=== PATIENT | male | born 1955 ===

== ENCOUNTER 2022-11-29 13:52 | Emergency (ER) | payer OTHER, MEDICAID ==
[~2022-11-29 13:52] MED LIST: Iopamidol-370 76% 500 ML 1 ML ONE
[2022-11-29] MEDS ORDERED: Boostrix 0.5 ML (Tdap) VIAL (>/=7 yrs of age) ONE (14:21)
[2022-11-29 15:01] LABS: #Basophils 0.1 thou/uL (0.0-0.2); #Eosinphils 0.2 thou/uL (0.0-0.7); #Lymphocytes 1.1 thou/uL (1.20-3.40); #Neutrophils 11.2 thou/uL (1.40-6.50); %Basophils 0.6 % (0.0-1.0); %Eosinophils 1.6 % (0.0-10.0); %Lymphocytes 8.1 % (21.0-51.0); %Monocytes 7.5 % (0.0-10.0); %Neutrophils 82.1 % (42.0-75.0); Hemoglobin 12.9 g/dL (14.0-18.0); Mean Corpuscular Hemoglobin 31.9 pg (27.0-31.0); Mean Corpuscular Volume 93.8 fl (78.0-98.0); Mean Platelet Volume 6.7 fL (7.4-10.4); Platelet Count 242 10x3/uL (130-400); RBC Distribution Width 12.5 % (11.5-14.5); Red Blood Cell (RBC) Count 4.05 mill/uL (4.70-6.10); White Blood Cell (WBC) Count 13.6 10x3/uL (4.8-10.8)
[2022-11-29 15:10] LABS: PTT 26.9 sec (22.9-36.1)
[2022-11-29 15:29] LABS: ALT (SGPT) 20 U/L (8-55); AST (SGOT) 24 U/L (5-34); Albumin 3.7 g/dL (3.4-4.8); Alcohol Less than 10 mg/dL (Less than 10); Alkaline Phosphatase 69 U/L (40-110); Anion Gap 13 mmol/L (10-20); BUN (Urea Nitrogen) 20 mg/dL (8.4-25.7); Bilirubin, Total 0.4 mg/dL (0.2-1.2); Calc. Creatinine Clearance 0 mL/min (70-130); Carbon Dioxide 23 mmol/L (23-31); Chloride 103 mmol/L (98-107); Estimated GFR 77; Globulin 2.8 g/dL (2.4-3.5); Glucose 139 mg/dL (80-115); Lipase 28 U/L (8-78); Potassium 3.6 mmol/L (3.5-5.1); Protein, Total 6.5 g/dL (5.8-8.1); Sodium 135 mmol/L (136-145)
[2022-11-29] MEDS ORDERED: Ondansetron PF 4 MG/2 ML Vial IVP PRN (16:04)
[2022-11-29] MEDS ORDERED: Ipratropium/Albuterol 3 ML NEB NEB PRN ×2 (16:04→16:10)
[2022-11-29] MEDS ORDERED: Cyclobenzaprine 10 MG TAB PO PRN (16:10)
[2022-11-29] MEDS ORDERED: hydrALAZINE 20 MG/ML VIAL SLOW IVP PRN (16:10)
[2022-11-29] MEDS ORDERED: traMADol HCl 50 MG TAB PO PRN (16:10)
[2022-11-29] MEDS ORDERED: Sodium Chloride 0.9% 1,000 ML IV SCH (16:15)
[2022-11-29] MEDS ORDERED: Ketorolac Tromethamine 30 MG/ML VIAL ONE (17:52)
[2022-11-29] MEDS ORDERED: traMADol HCl 50 MG TAB PO SCH (18:00)
[2022-11-29] MEDS ORDERED: Famotidine/PF 20 mg/2ml Vial SLOW IVP SCH (21:00)
[2022-11-29] MEDS ORDERED: Senokot S 8.6-50 MG TAB PO SCH (21:00)
[2022-11-29] MEDS ORDERED: Gabapentin 300 MG CAP PO SCH (21:00)
[2022-11-29] MEDS ORDERED: Acetaminophen 500 MG TAB PO SCH (23:59)
[2022-11-30] MEDS ORDERED: Multivitamin W/ Minerals 1 TAB PO SCH (09:00)
[2022-11-30] MEDS ORDERED: Polyethylene Glycol 3350 17 GM Packet PO SCH (09:00)
== END 2022-11-29 18:03 | disposition home or self-care (01) ==
LOC: ERS 13:52
DX: S02.32XA Fracture of orbital floor, left side, initial encounter for closed fracture (principal); S12.400A Unspecified displaced fracture of fifth cervical vertebra, initial encounter for closed fracture; D72.829 Elevated white blood cell count, unspecified; E78.5 Hyperlipidemia, unspecified; I10 Essential (primary) hypertension; F17.210 Nicotine dependence, cigarettes, uncomplicated; V89.2XXA Person injured in unspecified motor-vehicle accident, traffic, initial encounter; Z79.899 Other long term (current) drug therapy
CPT/HCPCS: 36415; 70450; 70486; 70498; 71260; 72125; 74177; 80053; 80307; 83690; 84484; 85025; 85610; 85730; 90471; 90715; 93005; 96374; J1885